=== PATIENT | female | born 1965 | race Hispanic/Latino ===

== ENCOUNTER 2018-04-02 10:37 | Day surgery (SDC) | payer BC ==
[2018-04-01] MEDS: CEFAZOLIN SODIUM 1 GM VIAL IVP SCH (13:00)
--- NOTE | 2018-04-01 14:32 | NUR ---
EKG Dr Todd reviewed abnormal EKG from 04/01/2018, ok to proceed to surgery
[2018-04-02] VITALS (13 sets, daily range): BP systolic 117–148; BP diastolic 70–79
[~2018-04-02 10:37] MED LIST: BUPR-47 PO; CALC-190 PO; CHOL500050 PO; LACTATED RINGERS 1000ML 1,000 ML IV SCH; LEVO112T7 PO; LINA145C PO; MIRA50TA PO; OMEP40CA37 PO; SOLI10TA PO
[2018-04-02] MEDS ORDERED: BUPIVACAINE/EPI/PF 0.25% 50 ML VIAL ONE (11:54)
[2018-04-02] MEDS ORDERED: DURAMORPH PF1 MG/ML 10ML AMP IV ONE (11:54)
[2018-04-02] MEDS ORDERED: LIDOCAINE PF 2% 5ML ABBOJECT ONE (12:08)
[2018-04-02] MEDS ORDERED: DEXAMETHASONE SOD PHOSPHATE 10MG/ML 1ML VIAL ONE (12:08)
[2018-04-02] MEDS ORDERED: SUCCINYLCHOLINE 200MG/10ML SYR ONE (12:08)
[2018-04-02] MEDS ORDERED: ONDANSETRON HCL 4 MG/2 ML VIAL ONE ×2 (12:09→13:14)
[2018-04-02] MEDS ORDERED: MIDAZOLAM HCL 1 MG/ML 2ML VIAL ONE (12:09)
[2018-04-02] MEDS ORDERED: NEOSTIGMINE 5MG/5ML SYR IV ONE (12:10)
[2018-04-02] MEDS ORDERED: GLYCOPYRROLATE 1 MG/5 ML SYRINGE ONE (12:10)
[2018-04-02] MEDS ORDERED: ROCURONIUM 10MG/1ML SYR 10 MG/ML ML ONE ×2 (12:10→12:43)
[2018-04-02] MEDS ORDERED: PROPOFOL 10 MG/ML 20ML VIAL IV ONE ×2 (12:10→12:40)
[2018-04-02] MEDS ORDERED: FENTANYL CITRATE PF 50 MCG/1 ML 2ML VIAL ONE ×2 (12:11→12:29)
[2018-04-02] MEDS: CEFAZOLIN SODIUM 1 GM VIAL IVP SCH (12:25)
[2018-04-02] MEDS ORDERED: CELESTONE SOLUSPAN 6 MG/ML 5ML VIAL ONE (12:49)
[2018-04-02] MEDS ORDERED: MEPERIDINE-PF 25 MG/ML SYG ONE ×2 (13:07→13:18)
[2018-04-02] MEDS ORDERED: KETOROLAC TROMETHAMINE 30MG/ML ONE (13:07)
== END 2018-04-02 14:35 | disposition home or self-care (01) ==
LOC: DAH 10:37
PROVIDERS: ATTEND Orthopaedic Surgery
DX: S72.422A Displaced fracture of lateral condyle of left femur, initial encounter for closed fracture (principal); S83.282A Other tear of lateral meniscus, current injury, left knee, initial encounter; S83.242A Other tear of medial meniscus, current injury, left knee, initial encounter; X58.XXXA Exposure to other specified factors, initial encounter; Y93.9 Activity, unspecified; Y92.89 Other specified places as the place of occurrence of the external cause; Y99.9 Unspecified external cause status; Z90.710 Acquired absence of both cervix and uterus; Z98.890 Other specified postprocedural states; E66.01 Morbid (severe) obesity due to excess calories; K21.9 Gastro-esophageal reflux disease without esophagitis; M19.90 Unspecified osteoarthritis, unspecified site; E07.9 Disorder of thyroid, unspecified
CPT/HCPCS: 29879; 29880; 93005; A4450; A4510; A4649 ×3; A4930; A6223; J0330; J0690; J0702; J1100; J1885; J2001; J2175 ×2; J2250; J2274; J2405 ×2; J2704 ×2; J2710; J3010 ×2; J3490 ×2; J7120 ×2